=== PATIENT | female | born 1965 | race Caucasian/White ===

== ENCOUNTER 2016-11-10 14:13 | Emergency (ER) | payer SELFPAY ==
[~2016-11-10] VITALS: Ht 165.1 cm; Wt 65.0 kg
[2016-11-10] MEDS ORDERED: HYDROcodone/APAP 5/325 TABLET PO ONE (16:00)
[2016-11-10] MEDS ORDERED: ONDANSETRON ODT 4 MG PO ONE (16:00)
[2016-11-10] MEDS ORDERED: HYDROcodone/APAP 5/325 TABLET ONE (16:13)
[2016-11-10] MEDS ORDERED: ONDANSETRON ODT 4 MG ONE (16:13)
[2016-11-10 17:28] VITALS: BP 121/83
== END 2016-11-10 17:31 | disposition home or self-care (01) ==
LOC: ED 14:56
DX: S16.1XXA Strain of muscle, fascia and tendon at neck level, initial encounter (principal); S39.012A Strain of muscle, fascia and tendon of lower back, initial encounter; S29.012A Strain of muscle and tendon of back wall of thorax, initial encounter; L93.0 Discoid lupus erythematosus; V43.53XA Car driver injured in collision with pick-up truck in traffic accident, initial encounter; Y93.89 Activity, other specified; Y99.8 Other external cause status; Y92.488 Other paved roadways as the place of occurrence of the external cause
CPT/HCPCS: 71020; 72020; 72050; 72072; 72110; 99284; Q0162